=== PATIENT | female | born 1965 | race Asian ===

== ENCOUNTER 2020-04-06 11:52 | Emergency (ER) | payer BC ==
--- NOTE | 2020-04-06 13:04 | CT ---
PROCEDURE INFORMATION: Exam: CT Head Without Contrast Exam date and time: 04/06/2020 12:39 PM Age: 54 years old Clinical indication: Injury or trauma; Fall; Initial encounter; Abrasion; Head, generalized; Injury date: Today; Injury details: Fell and hit the back of her head when she got her left foot caught between rocks; Additional info: Head injury TECHNIQUE: Imaging protocol: Computed tomography of the head without contrast. Radiation optimization: All CT scans at this facility use at least one of these dose optimization techniques: automated exposure control; mA and/or kV adjustment per patient size (includes targeted exams where dose is matched to clinical indication); or iterative reconstruction. COMPARISON: No relevant prior studies available. FINDINGS: Brain: Low-lying cerebellum or cerebellar ectopia. No elliot Chiari malformation. No intracranial bleed , shift, mass or mass effect. No thrombus sign or focal edema to suggest acute infarct. Ventricles: Normal ventricles. Bones/joints: Incompletely fused posterior arch of C1. Normal calvarium. Sinuses: No air-fluid levels in sinuses. Mastoid air cells: Normal mastoids. Orbits: Normal optic globes and orbits. Soft tissues: Nonspecific posterior scalp soft tissue swelling. IMPRESSION: 1. Negative CT Brain for acute intracranial process. 2. Low-lying cerebellum or cerebellar ectopia. No elliot Chiari malformation. 3. 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
--- NOTE | 2020-04-06 13:08 | CR ---
PROCEDURE INFORMATION: Exam: XR Left Foot Complete Exam date and time: 04/06/2020 12:39 PM Age: 54 years old Clinical indication: Injury or trauma; Fall; Initial encounter; Swelling (edema); Injury date: Today; Injury details: Caught left foot between rocks and fell and hit the back of her head; Additional info: Left foot injury, difficult to weight bare TECHNIQUE: Imaging protocol: XR Left foot. Views: 3 or more views. COMPARISON: No relevant prior studies available. FINDINGS: Bones/joints: 11 mm lucent lesion of the tuft of the left great toe with minimal rim sclerosis or sharp zone of transition. Possible left great toe pathologic fracture. Mild hallux valgus deformity of the left great toe. R possible nondisplaced transverse fractures versus stress lines of the bases of the left 3rd and 4th metatarsal bones Left great toe sesamoid osteoarthritis Soft tissues: Mild soft tissue swelling or possible bunion of the left great toe IMPRESSION: 1. Lytic/lucent 11 mm cystic lesion of left great toe-benign vs malignant 2. Stress lines versus nondisplaced/incomplete fractures of the left 3rd and 4th metatarsal bases. 3. Consider whole-body bone scan with spot images of the feet to assess for metabolic activity of Impressions #1 and #2.
[2020-04-06] MEDS ORDERED: Ibuprofen 800 MG Tab PO ONE (13:18)
--- NOTE | 2020-04-06 15:56 | EDM.PDOC ---
<Ann-Marie Maxwell R - Last Filed: 04/06/20 16:26> ED HPI GENERAL MEDICAL PROBLEM - General Chief Complaint: Lower Extremity Injury/Pain Stated Complaint: [id number] FELL AND HIT HEAD AND LEFT FOOT Time Seen by Provider: 04/06/20 12:00 Source of Information: Reports: Patient History Limitations: Reports: No Limitations - History of Present Illness INITIAL COMMENTS - FREE TEXT/NARRATIVE: Patient is a 54 year old female who presents with left foot pain and head injury after a fall. States she was at the [employer] when she accidentally stepped in between 2 rocks and fell backwards and hit the back of her head. States she had LOC after the fall and her had to carry her out. She is unable to walk on the left LE. She complains of some blurry vision after the fall. Denies headaches, nausea, vomiting, chest pain, shortness of breath, light headedness, dizziness. Onset: Today Location: Reports: Head, Lower Extremity, Left Quality: Reports: Ache Severity: Mild Improves with: Reports: Immobilization, Rest Worsens with: Reports: Movement Posterior Head Pain Score (Numeric/FACES): 10 - Related Data Allergies Allergy/AdvReac Type Severity Reaction Status Date / Time No Known Allergies Allergy Verified 04/06/20 12:03 Home Meds: Home Meds . [No Known Home Meds] 04/06/20 [History] Past Medical History - Past Health History Medical/Surgical History: Denies Medical/Surgical History Social & Family History - Tobacco Use Smoking Status *Q: Never Smoker - Caffeine Use Caffeine Use: Reports: None - Recreational Drug Use Recreational Drug Use: No Review of Systems - Review of Systems Review Of Systems: See Below Constitutional: Reports: No Symptoms Eyes: Reports: Blurred Vision Ears: Reports: No Symptoms Nose: Reports: No Symptoms Mouth/Throat: Reports: No Symptoms Respiratory: Reports: No Symptoms Cardiovascular: Reports: No Symptoms GI/Abdominal: Reports: No Symptoms Genitourinary: Reports: No Symptoms Musculoskeletal: Reports: No Symptoms, Foot Pain (Left foot pain in the dorsal aspect of the mid foot.) Skin: Reports: No Symptoms Neurological: Reports: No Symptoms Psychiatric: Reports: No Symptoms ED EXAM, GENERAL - Physical Exam Exam: See Below Exam Limited By: No Limitations General Appearance: Alert, WD/WN, No Apparent Distress Ears: Normal External Exam, Normal Canal, Hearing Grossly Normal, Normal TMs Ear Exam: Bilateral Ear: Auricle Normal, Canal Normal, TM normal Nose: Normal Inspection, Normal Mucosa, No Blood Throat/Mouth: Normal Inspection, Normal Lips, Normal Teeth, Normal Gums, Normal Oropharynx, Normal Voice, No Airway Compromise Head: Other (Bruise noted on the back of her head. TTP. No active bleeding or fractures.) Neck: Normal Inspection, Supple, Non-Tender, Full Range of Motion Respiratory/Chest: No Respiratory Distress, Lungs Clear, Normal Breath Sounds, No Accessory Muscle Use, Chest Non-Tender Cardiovascular: Normal Peripheral Pulses, Regular Rate, Rhythm, No Edema, No Gallop, No JVD, No Murmur, No Rub GI/Abdominal: Normal Bowel Sounds, Soft, Non-Tender, No Organomegaly, No Distention, No Abnormal Bruit, No Mass (Female) Exam: Deferred Rectal (Female) Exam: Deferred Back Exam: Normal Inspection, Full Range of Motion, NT Extremities: No Pedal Edema, Normal Capillary Refill, Other (Left mid foot swelling noted. TTP in the area. Ankle ROM full. No tenderness noted in the left fibular region. Patient non-weight baring.) Course - Vital Signs Text/Narrative:: XR of the left foot and ankle showed: non displaced fracture 3rd and 4th metatarsal bases. Lytic/Lucent 11mm Cystic lesion of the left great toe CT of the head: Negative for acute changes Departure - Departure Time of Disposition: 14:30 Disposition: Home, Self-Care 01 Condition: Good Clinical Impression: Fracture of foot, Fracture of metatarsal bone of left foot, Head contusion - Discharge Information Instructions: Cast or Splint Care, Adult, [id number] Referrals: PCP,None [Primary Care Provider] - Forms: ED Department Discharge Additional Instructions: Follow up with your regular doctor this week about definitive care of the possible stress fractures and lytic lesion in the foot. Follow up imaging and evaluation for possible malignant process was recommended by the radiologist. The Head CT is negative. Take it easy for a couple of days. Ice packs to the head and foot as needed for pain. You can ibuprofen and tylenol as needed for pain. Immobilization for 2-3 weeks and continued firm-sole walking shoe for 4-6 weeks. Expect 6 weeks healing time. Repeat x-rays and additional imaging per your regular doctor. Advance weight bearing as able. Sepsis Event Note (ED) - Evaluation Sepsis Screening Result: No Definite Risk <Hannah Cline - Last Filed: 04/06/20 18:57> Course - Vital Signs Last Recorded V/S: Last Vital Signs Temp 98.2 F 04/06/20 12:00 Pulse 71 04/06/20 12:00 Resp 16 04/06/20 12:00 BP 133/64 04/06/20 12:00 Pulse Ox 100 04/06/20 12:00 - Orders/Labs/Meds Meds: Medications Discontinued Medications Generic Name Dose Route Start Last Admin Trade Name Freq PRN Reason Stop Dose Admin Ibuprofen 800 mg 04/06/20 13:18 04/06/20 13:26 Motrin PO 04/06/20 13:19 800 mg ONETIME ONE Administration Sepsis Event Note (ED) - Focused Exam Vital Signs: Vital Signs Temp Pulse Resp BP Pulse Ox 04/06/20 12:00 98.2 F 71 16 133/64 100 - Assessment/Plan Plan: Patient seen and examined. Agree with note as written by Dr. Maxwell. 04/06/2020 [id number]
== END 2020-04-06 13:59 | disposition home or self-care (01) ==
LOC: DL.ED 11:52
DX: S92.325A Nondisplaced fracture of second metatarsal bone, left foot, initial encounter for closed fracture (principal); S92.335A Nondisplaced fracture of third metatarsal bone, left foot, initial encounter for closed fracture; S92.345A Nondisplaced fracture of fourth metatarsal bone, left foot, initial encounter for closed fracture; S00.03XA Contusion of scalp, initial encounter; W22.8XXA Striking against or struck by other objects, initial encounter
CPT/HCPCS: 70450; 73630; 99284; A9270